=== PATIENT | male | born 1960 | race Caucasian/White ===

== ENCOUNTER 2022-09-13 06:20 | Day surgery (SDC) | payer BC ==
[~2022-09-13 06:20] MED LIST: Lactated Ringers 1,000 ML IV SCH; Sodium Chloride 0.9% 10 ML Syringe FLUSH PRN
[2022-09-13] MEDS ORDERED: Midazolam 1 MG/ML 2 ML SDV IV ONE (06:21)
[2022-09-13] MEDS ORDERED: Propofol 200 MG/20 ML SDV IV ONE (06:21)
[2022-09-13 08:28] VITALS: BP 133/85; PULSE 71
== END 2022-09-13 08:30 | disposition home or self-care (01) ==
LOC: FB.SDS 06:20
PROVIDERS: ATTEND Surgery
DX: Z12.11 Encounter for screening for malignant neoplasm of colon (principal); I10 Essential (primary) hypertension; K57.30 Diverticulosis of large intestine without perforation or abscess without bleeding; Z79.899 Other long term (current) drug therapy; Z79.82 Long term (current) use of aspirin
CPT/HCPCS: 00812-QZ; J2250; J2704; J7120